=== PATIENT | female | born 1955 | race Caucasian/White ===

== ENCOUNTER → 2021-11-22 | Outpatient (CLI) | payer MEDICARE, BC ==
[2021-11-22 10:53] LABS: Appearance,Urine Clear (Clear); Bilirubin,Urine Negative (Negative); Blood,Urine Negative (Negative); Color,Urine Yellow; Glucose,Urine (UA) Negative (Negative); Ketones,Urine Negative (Negative); Leukocyte Esterase,Urine Negative (Negative); Nitrite,Urine Negative (Negative); PH, Urine 5.5 (5.0-8.0); Protein,Urine Negative (Negative); Specific Gravity,Urine 1.016 (1.001-1.035); Urobilinogen,Urine <2.0 mg/dL (<2.0)
[2021-11-22 15:08] LABS: Basophils # (A) 0.04 X 10*3/uL (0.00-0.10); Basophils % (A) 0.6 %; Eosinophils # (A) 0.19 X 10*3/uL (0.04-0.35); Eosinophils % (A) 2.7 %; HCT 42.8 % (37.2-46.3); HGB 13.5 g/dL (12.0-15.0); Immature Grans, Automated 0.1 %; Lymphocytes # (A) 2.39 X 10*3/uL (0.90-5.00); Lymphocytes % (A) 34.6 %; MCH 27.4 pg (27.0-32.0); MCHC 31.5 g/dL (32.0-37.0); Mean Platelet Volume 9.7 fL (9.5-12.2); Monocytes # (A) 0.33 X 10*3/uL (0.20-1.00); Monocytes % (A) 4.8 %; NRBC Per 100 WBC 0 /100 WBCS (0.0-0.0); Neutrophils # (A) 3.95 X 10*3/uL (1.80-7.70); Neutrophils % (A) 57.2 %; Platelet Count 350 X 10*3/uL (140-440); RBC 4.92 X 10*6/uL (4.10-5.20); RDW 13.4 % (11.5-14.5); WBC 6.91 X 10*3/uL (4.50-10.00)
[2021-11-22 15:54] LABS: ALT 34 U/L (8-44); AST 30 U/L (13-35); African American GFR (CKD) 88.4 (60.0-200.0); Albumin 4.5 g/dL (3.8-4.9); Alkaline Phosphatase 76 U/L (41-126); BUN/Creat Ratio 19.88 Ratio (12.00-20.00); Blood Urea Nitrogen 15.9 mg/dL (9.0-27.0); Calcium 9.5 mg/dL (8.7-10.3); Carbon Dioxide 21.7 mmol/L (20.0-27.5); Chloride 105 mmol/L (96-109); Chol/HDL Ratio 3.84 Ratio; Globulin 2.5 g/dL (1.6-3.3); Glucose 156 mg/dL (70-110); LDL Cholesterol,Calculated 81.4 mg/dL (0.0-131.0); Non-African American GFR(CKD) 76.3 (60.0-200.0); Potassium 4.8 mmol/L (3.5-5.5); Sodium 141 mmol/L (135-145)
[2021-11-22 20:58] LABS: Microalbumin Creatinine Ratio <30 mg/g Creat (0-30)
== END | disposition home or self-care (01) ==
LOC: LABWHC1 09:13
PROVIDERS: ATTEND Internal Medicine
DX: E11.9 Type 2 diabetes mellitus without complications (principal)
CPT/HCPCS: 36415; 80053; 80061; 81003; 82043; 82570; 83036; 84443; 85025

== ENCOUNTER → 2022-06-20 | Outpatient (CLI) | payer MEDICARE, BC ==
[2022-06-20 15:16] LABS: Appearance,Urine Clear (Clear); Bilirubin,Urine Negative (Negative); Blood,Urine Negative (Negative); Color,Urine Yellow; Glucose,Urine (UA) 4+ (Negative); Ketones,Urine Trace (Negative); Leukocyte Esterase,Urine Large (Negative); Mucus,Urine Rare /hpf; Nitrite,Urine Negative (Negative); PH, Urine 5.5 (5.0-8.0); Protein,Urine Trace (Negative); RBC,Urine <1 /hpf (0-5); Specific Gravity,Urine 1.021 (1.001-1.035); Squamous Epithelial Cell,Urine 4 /hpf (0-4); Urobilinogen,Urine <2.0 mg/dL (<2.0); WBC,Urine 6 /hpf (0-5)
== END | disposition home or self-care (01) ==
LOC: LABWHC1 12:15
PROVIDERS: ATTEND Internal Medicine
DX: N39.0 Urinary tract infection, site not specified (principal)
CPT/HCPCS: 81001

== ENCOUNTER → 2022-07-10 | Outpatient (CLI) | payer MEDICARE, BC ==
--- NOTE | 2022-07-10 10:57 | CA ---
Stress Echo Report Shamika Hickman Age: 66 Gender: F : 1955 Exam Date: 07/10/2022 10:18 Exam Location: [facility] Ht (in): 63 Wt (lb): 205 Ordering Physician: Brett Ren MD Referring Physician: MARTIN,, [employer] Teacher: Willa Dunn RDCS Technologist Procedure CPT: Indication: R00.2 ICD-9 Codes: Rhythm: Patient History: Hypertension, Diabetes mellitus, Hyperlipidemia, Family history, Smoker Cardiac Medications: Medications in past 24 hours: Contrast: Stress Results Protocol: Balwinder Total dose(mL): Exercise Duration (min:sec): 5:[address] Depression (mm): Angina Score: Corral Score: METS: 7.1 Resting HR: 84 Resting BP: 158 / 87 Peak HR: 141 Peak BP: 242 / 84 Max Predicted HR: 153 92 % Max Predicted HR Target HR: 130 Double Product: [id number] Stress Summary: The patient's target heart rate was achieved BP Response: Normal Reason for Termination: MAX EXERTION/TARGET HR Cardiac Symptoms: DIFFICULTY IN BREATHING ECG Analysis Resting ECG: Baseline EKG shows sinus rhythm normal lites normal intervals Stress ECG: Patient exercised on Balwinder protocol for a total of 5 minutes achieving 6 mets 85% of predicted maximal heart rate without chest pain or diagnostic ST segment depression Arrhythmia: Echo Analysis Resting Echo: Baseline echo shows normal left ventricular size wall motion systolic function Peak Echo Analysis: Post exercise there is normal hyperdynamic response of all symptoms of myocardium noted MEASUREMENTS (Male/Female) Normal Values CONCLUSIONS Average exercise tolerance Negative stress test by EKG criteria Negative stress echo Dr. Jose Carlos Castanead MD (Electronically Signed) Final Date: 10 July 2022 10:56
== END | disposition home or self-care (01) ==
LOC: RADNMMAIN 09:09
PROVIDERS: ATTEND Internal Medicine
DX: R00.2 Palpitations (principal)
CPT/HCPCS: 93351